=== PATIENT | female | born 1990 | race Caucasian/White ===

== ENCOUNTER 2018-11-26 19:58 | Outpatient (CLI) | payer OTHER ==
[~2018-11-26] VITALS: Ht 147.3 cm; Wt 69.1 kg
[2018-11-26 20:20] VITALS: BP 120/76; PULSE 85; TEMP 97.9
[2018-11-26] MEDS ORDERED: PRENATAL MVI (20:25)
[2018-11-26 20:26] VITALS: BP 120/76; PULSE 85; TEMP 97.9
--- NOTE | 2018-11-26 20:30 | NUR ---
SROM CHECK HERE WITH SPOUSE AND AUGUST
--- NOTE | 2018-11-26 21:10 | NUR ---
PT REPORTS LEAKING AGAIN VAGINALLY. LARGE AMT OF MUCOUS OBSERVED. NITRAZINE NEGATIVE AGAIN. REPORTD TO DR JORDAN. DISCHARGE ORDERS RECEIVED. HOME INSTRUCTIONS DISCUSSED WITH PT AND FAMILY. 2144 DISCHARGED TO HOME
== END 2018-11-26 21:45 | disposition home or self-care (01) ==
LOC: LDRO 19:58
DX: O42.92 Full-term premature rupture of membranes, unspecified as to length of time between rupture and onset of labor (principal); Z3A.39 39 weeks gestation of pregnancy

== ENCOUNTER 2018-11-27 00:33 | Inpatient (IN) | payer OTHER ==
--- NOTE | 2018-11-26 00:38 | NUR ---
HERE WITH SPOUSE AND MOM- SROM CLEAR 0020 . VERY UNCOMFORTABLE /-2/ REPORT TO DR JORDAN
[2018-11-27] VITALS (50 sets, daily range): BP systolic 95–136; BP diastolic 53–78; PULSE 81–139; TEMP 97.8–99.6
[~2018-11-27] VITALS: Ht 149.9 cm; Wt 68.6 kg
[~2018-11-27 00:33] MED LIST: PRENATAL MVI
[2018-11-27 01:53] LABS: BASO % 0.2 % (0.0-2.0); EOS # 0.1 (0.0-0.7); EOS % 0.4 % (0-4.0); GRAN # 11.6 (1.4-6.5); GRAN % 71.2 % (42.2-75.2); HEMATOCRIT 33.9 % (37.0-47.0); HEMOGLOBIN 11.5 g/dl (12.5-16.0); LYMPH # 3.5 (1.2-3.4); LYMPH % 21.7 % (20.0-51.0); MEAN CELL VOLUME 87 fl (80.0-100.0); MEAN CORPUSCULAR HEMOGLOBIN 29 pg (27.0-31.0); MEAN CORPUSCULAR HGB CONC 34 g/dl (33.0-37.0); MEAN PLATELET VOLUME 11.6 fl (7.4-10.4); PLATELET COUNT 210 K/mm3 (130-400); RED BLOOD COUNT 3.92 M/mm3 (4.10-5.30)
--- NOTE | 2018-11-27 02:30 | NUR ---
SEATED FOR EPID PLACEMENT 0236 TEST DOSE TOLERATD WELL. [facility] RECORDING DURING PLACEMENT . [facility] INTERMITTENT AT 120 BPM
[2018-11-28] VITALS: BP 101/66; PULSE 100
[2018-11-28] MEDS ORDERED: PERCOCET 325 MG1 TA2 PO (07:21)
[2018-11-28] MEDS ORDERED: MOTRIN 800800 MG/TAB PO (07:21)
[2018-11-28 08:30] VITALS: BP 103/66; PULSE 84; TEMP 97.1
--- NOTE | 2018-11-28 11:01 | NUR ---
Initial visit; Parents thanked for offering congratulations for the of their daughter and for choosing [facility].
[2018-11-28 16:15] VITALS: BP 103/71; PULSE 85; TEMP 97.5
[2018-11-28 20:00] VITALS: BP 103/61; PULSE 80; TEMP 97.9
[2018-11-29 08:22] VITALS: BP 96/68; PULSE 73; TEMP 97.1
== END 2018-11-29 11:05 | disposition home or self-care (01) | DRG 807 ==
LOC: LDRO 00:33 → OB 01:11 → LDR 01:11 → OB 11-28 00:40
PROVIDERS: ADMIT Student in an Organized Health Care Education/Training Program
PROC: 10E0XZZ Delivery of Products of Conception, External Approach (ICD-10-PCS; principal; 2018-11-27)
PROC: 0HQ9XZZ Repair Perineum Skin, External Approach (ICD-10-PCS; 2018-11-27)
PROC: 0UQMXZZ Repair Vulva, External Approach (ICD-10-PCS; 2018-11-27)
DX: O70.0 First degree perineal laceration during delivery (principal); Z37.0 Single live birth; Z3A.39 39 weeks gestation of pregnancy; Z28.21 Immunization not carried out because of patient refusal
CPT/HCPCS: J2405; J2590; J7120

== ENCOUNTER → 2018-12-29 | Outpatient (CLI) | payer OTHER ==
[~2018-12-29] MED LIST changes: +MOTRIN 800800 MG/TAB PO; +PERCOCET 325 MG1 TA2 PO
--- NOTE | 2018-12-29 16:17 | NUR ---
Pt, Yvonne Malcolm presents for outpatient consult with one month old baby girl, Jermain Malcolm. They were referred by Dr. Jaswinder Ferris because Jermain was below her weight at her one month appointment. Jermain was born on [birth year] and weighed 7#15oz. She weighed 7#14.8oz at Dr. Ferris's two days ago. Today Jermain weighs 7#15.5oz. She has breastfed 7 times in the last 24 hours but only on one side each time. She has recieved 7oz EBM by bottle in the last 24 hours, had several voids and stools, which are green and small. Jermain latches to the first breast but it is shallow. Pt advised on getting more areola into baby's mouth to help with transfer. She has a weight gain of one ounce on the right breast. Pt latches Jermain better on the left side after instruction and she has a gain of 0.4oz from the left breast for a total weight gain of 1.4oz. Pt has pumped x2 in the last 24 hours, collecting 4oz each time. Plan of care: Breastfeed bilaterally with better latching 8 or more times daily. Provide 2-3oz EBM or formula after each . Pump to improve milk supply and have supplement each feeding. Pt verbalizes understanding, handouts with plan of care and suggestions for increasing milk supply provided. Pt anticipates following up at clinic next week. Questions invited and answered.
== END ==
LOC: LAC 13:09
DX: Z39.1 Encounter for care and examination of lactating mother (principal); Z71.89 Other specified counseling

== ENCOUNTER 2019-01-16 04:16 | Emergency (ER) | payer OTHER | END 2019-01-16 07:48 | disposition home or self-care (01) | LOC: COL.ER 04:16 | DX: R11.10 Vomiting, unspecified (principal); R19.7 Diarrhea, unspecified ==